=== PATIENT | male | born 1960 | race Caucasian/White ===

== ENCOUNTER 2018-12-28 18:22 | Inpatient (IN) | payer MEDICAID ==
[~2018-12-28] VITALS: Ht 175.3 cm; Wt 87.4 kg
[2018-12-28] MEDS ORDERED: ASPIRIN 81 MG TAB PO STA (20:37)
[2018-12-28] MEDS ORDERED: NITROGLYCERIN 2% 1 GM OINT PKT TD STA (20:37)
[2018-12-28] MEDS ORDERED: NITROGLYCERIN (SL) 0.4 MG TAB SL PRN ×2 (21:00→22:30)
[2018-12-28] MEDS ORDERED: BISACODYL (EC) 5 MG TAB PO PRN (22:30)
[2018-12-28] MEDS ORDERED: NACL 0.9% 3 ML SYG IV SCH (22:30)
[2018-12-28] MEDS ORDERED: ACETAMINOPHEN 325 MG TAB PO PRN ×2 (22:30)
[2018-12-28] MEDS ORDERED: DOCUSATE SODIUM 100 MG CAP PO PRN (22:30)
[2018-12-28] MEDS ORDERED: morphine 2 MG INJ IV PRN (22:30)
[2018-12-28] MEDS ORDERED: ONDANSETRON 4 MG INJ IV PRN ×2 (22:30)
--- NOTE | 2018-12-28 23:09 | ERD ---
ER Documentation Chief Complaint Chief Complaint CP RADIATING TO BACK X'S 3 DAYS HPI Patient is a 58-year-old male with no medical problems who presents with chest pain and shortness of breath. The patient has midsternal chest pain which started on Thursday. The patient is a 3 weeks of back pain and cough. The patient has had fevers off and on as well but says these are subjective fevers and has not taken temperature.. The patient goes to a local clinic. ROS All systems reviewed and are negative except as per history of present illness. Allergies Allergies: Coded Allergies: No Known Allergy (Unverified , 12/28/18) PMhx/Soc Medical and Surgical Hx: pt denies Medical Hx, pt denies Surgical Hx Hx Alcohol Use: No Hx Substance Use: No Hx Tobacco Use: No Smoking Status: Never smoker FmHx Family History: coronary disease Physical Exam Vitals Vital Signs Date Temp Pulse Resp B/P (MAP) Pulse Ox O2 O2 Flow FiO2 Time Delivery Rate 12/28/18 73 12 156/91 98 Room Air 22:52 (112) 12/28/18 98.6 92 18 194/109 96 18:54 (137) Physical Exam Const: No acute distress Head: Atraumatic Eyes: Normal Conjunctiva ENT: Normal External Ears, Nose and Mouth. Neck: Full range of motion. No meningismus. Resp: Clear to auscultation bilaterally Cardio: Regular rate and rhythm, no murmurs Abd: Soft, non tender, non distended. Normal bowel sounds Skin: No petechiae or rashes Back: No midline or flank tenderness Ext: No cyanosis, or edema Neur: Awake and alert Psych: Normal Mood and Affect Result Diagram: 12/28/18205412/28/182054 Results 24 hrs Laboratory Tests Test 12/28/18 20:55 White Blood Count 9.9 10^3/ul Red Blood Count 4.81 10^6/ul Hemoglobin 13.8 g/dl Hematocrit 41.9 % Mean Corpuscular Volume 87.1 fl Mean Corpuscular Hemoglobin 28.7 pg Mean Corpuscular Hemoglobin Concent 32.9 g/dl Red Cell Distribution Width 13.2 % Platelet Count 267 10^3/UL Mean Platelet Volume 10.8 fl Immature Granulocytes % 0.300 % Neutrophils % 62.4 % Lymphocytes % 23.5 % Monocytes % 12.2 % Eosinophils % 1.2 % Basophils % 0.4 % Nucleated Red Blood Cells % 0.0 /100WBC Immature Granulocytes # 0.030 10^3/ul Neutrophils # 6.2 10^3/ul Lymphocytes # 2.3 10^3/ul Monocytes # 1.2 10^3/ul Eosinophils # 0.1 10^3/ul Basophils # 0.0 10^3/ul Nucleated Red Blood Cells # 0.0 10^3/ul Sodium Level 143 mmol/L Potassium Level 4.1 mmol/L Chloride Level 106 mmol/L Carbon Dioxide Level 27 mmol/L Anion Gap 10 Blood Urea Nitrogen 18 mg/dl Creatinine 0.71 mg/dl Est Glomerular Filtrat Rate mL/min > 60 mL/min Glucose Level 111 mg/dl Calcium Level 9.8 mg/dl Troponin I < 0.012 ng/ml Current Medications Medications Dose Sig/Clement Start Time Status Last (Trade) Ordered Route PRN Stop Time Admin Dose Reason Admin Aspirin 162 mg ONCE STAT 12/28/18 DC 12/28/18 (Aspirin) PO 20:37 20:52 12/28/18 20:39 1 inch ONCE STAT 12/28/18 DC 12/28/18 Nitroglycerin TD 20:37 20:53 12/28/18 20:39 (Nitroglyceri n 2% Oint) 1 tab Q5M UP TO 3 12/28/18 Nitroglycerin DOSES PRN 21:00 SL .CHEST (Nitroglyceri PAIN n (Sl Tab) 0.4 Mg) Ondansetron 4 mg ER BRIDGE 12/28/18 HCl (Zofran PRN IV 22:30 12/29/18 Inj) NAUSEA/VOMITI 22:29 NG 650 mg ER BRIDGE 12/28/18 Acetaminophen PRN PO 22:30 12/29/18 (Tylenol .MILD PAIN 22:29 Tab) 1-3 OR TEMP IV Flush 3 ml PER 12/28/18 (NS 3 ml) PROTOCOL IV 22:30 Ondansetron 4 mg Q6H PRN 12/28/18 HCl (Zofran IV 22:30 Inj) NAUSEA/VOMITI NG Aspirin 81 mg DAILY PO 12/29/18 (Aspirin) 09:00 1 tab Q5M PRN 12/28/18 Nitroglycerin SL .CHEST 22:30 PAIN (Nitroglyceri n (Sl Tab) 0.4 Mg) 650 mg Q6H PRN 12/28/18 Acetaminophen PO .PAIN 1-3 22:30 (Tylenol OR TEMP Tab) Morphine 2 mg Q4H PRN 12/28/18 Sulfate IV .PAIN 22:30 (morphine) 7-10 Docusate 100 mg Q12H PRN 12/28/18 Sodium PO 22:30 (Colace) .CONSTIPATION Bisacodyl 5 mg DAILY PRN 12/28/18 (Dulcolax) PO 22:30 .CONSTIPATION Procedures/MDM EKG #1 read by me: Rate/Rhythm: Regular rate and rhythm at a normal rate Intervals: Normal Impression: No evidence of ischemia or arrhythmia EKG #2 read by me: Rate/Rhythm: Regular rate and rhythm at a normal rate Intervals: Normal Impression: No evidence of ischemia or arrhythmia Chest X-ray 1V Interpreted by me: Soft Tissue: No acute abnormalities Bones: No acute abnormalities Mediastinum/Cardiac Silhouette/Lungs: No acute abnormalities Patient is a 58-year-old male presents with chest pain shortness of breath. At this point I doubt pneumonia, pneumothorax, pulmonary embolism, or aortic dissection. I am concerned about possible acute coronary syndrome. The patient was given aspirin nitroglycerin empirically. He will be admitted to a telemetry observation bed to the care of Dr. Guerrero from the panel team. Departure Diagnosis: Primary Impression: Chest pain Chest pain type: unspecified Qualified Codes: R07.9 - Chest pain, unspecified Condition: KELSEY Mckeon MD Dec 28, 2018 23:09
[2018-12-28] MEDS ORDERED: [UNRECOGNIZED DRUG - CODE] PO (23:32)
[2018-12-28] MEDS ORDERED: HYDR12.53 PO (23:32)
[2018-12-29] VITALS (11 sets, daily range): BP systolic 120–148; BP diastolic 63–90; PULSE 66–94; RESP 18–20; Ht 175.3 cm; Wt 87.4 kg
[2018-12-29] MEDS ORDERED: hydrALAzine 20 MG INJ IV PRN (01:00)
--- NOTE | 2018-12-29 03:24 | HP ---
Date/Time of Note Date/Time of Note DATE: 12/29/18 TIME: 03:17 Assessment/Plan VTE Prophylaxis SCD applied (from Nsg): Yes Pharmacological prophylaxis: NA/contraindicated Pharm contraindication: low risk/ambulating Lines/Catheters IV Catheter Type (from Nrsg): Peripheral IV Assessment/Plan Hospital Course This is a 58-year male being admitted to the telemetry floor for observation for: #1 atypical chest pain: Patient presented with right-sided chest pain that occurs with cough, likely secondary to pneumonia.. Nonetheless we will trend cardiac enzymes x3. We will check an echocardiogram. #2 suspect community acquired pneumonia: Chest x-ray shows signs of possible pneumonia on the right side. Patient is afebrile and has a normal white blood cell count. However given his history of cough and fevers at home as well as him showing visible chills on examination I will treat him with ceftriaxone and azithromycin. We will get a procalcitonin level. #3 borderline obesity: We will check a hemoglobin A1c, lipid panel, TSH #4 hypertensive urgency: Patient did present to the emergency department with blood pressures in the 190s systolic. Patient apparently was also noted to have elevated blood pressures at the clinic when he was seen. Will initiate lisinopril at the current time. Continue to monitor #5 DVT GI prophylaxis: SCDs, no GI prophylaxis indicated Further treatment strategy will be implemented as per clinical course Result Diagram: 12/28/18205412/28/182054 Results 24hrs Laboratory Tests Test 12/28/18 20:55 White Blood Count 9.9 Red Blood Count 4.81 Hemoglobin 13.8 L Hematocrit 41.9 L Mean Corpuscular Volume 87.1 Mean Corpuscular Hemoglobin 28.7 L Mean Corpuscular Hemoglobin Concent 32.9 Red Cell Distribution Width 13.2 Platelet Count 267 Mean Platelet Volume 10.8 H Immature Granulocytes % 0.300 Neutrophils % 62.4 Lymphocytes % 23.5 Monocytes % 12.2 H Eosinophils % 1.2 Basophils % 0.4 Nucleated Red Blood Cells % 0.0 Immature Granulocytes # 0.030 Neutrophils # 6.2 Lymphocytes # 2.3 Monocytes # 1.2 H Eosinophils # 0.1 Basophils # 0.0 Nucleated Red Blood Cells # 0.0 Sodium Level 143 Potassium Level 4.1 Chloride Level 106 Carbon Dioxide Level 27 Anion Gap 10 Blood Urea Nitrogen 18 Creatinine 0.71 Est Glomerular Filtrat Rate mL/min > 60 Glucose Level 111 Calcium Level 9.8 Troponin I < 0.012 HPI/ROS Admit Date/Time Admit Date/Time Dec 28, 2018 at 22:27 Hx of Present Illness Chief complaint: Shortness of breath, cough chest pain since Thursday This is a patient is a 58-year-old male with no medical problems who presents with chest pain and shortness of breath. The patient has midsternal chest pain which started on Thursday. The patient is a 3 weeks of back pain and cough. The patient has had fevers off and on as well but says these are subjective fevers and has not taken temperature.. He reported that he went to a clinic yesterday and was told he had pneumonia. His brought him to the ER as she noticed that he just did not look right. He does report some phlegm with some specks of blood but denies any cj blood. Denies any recent weight loss or recent travel, denies any night sweats.. He reports that his chest pain is mostly when he coughs and is on the right side. He does work in a factory/warehouse around chemicals. Allergies: NKDA Medications: None ROS Const: As per HPI Eyes : No pain discharge or redness or change in visual acuity ENT: No pain, sore throat, congestion, congestion, dysphagia or discharge Respiratory: As per HPI Cardiovascular: As per HPI GI : no change in appetite, abdominal pain, nausea, vomiting, diarrhea, constipation, or change in the color his stool Genitourinary: No dysuria, hematuria, flank pain , discharge or CVA tenderness Musculoskeletal: No joint pain, back pain, neck pain, restricted range of motion in neck or joints Skin: No rash, bruising or hives Neuro: No headache, dizziness, syncope, seizure, focal weakness Endocrine: No polyuria, polydipsia, temperature intolerance Psych: No hallucination, depression, anxiety or suicidal ideation PMH/Family/Social Past Medical History Anxiety Medications Current Medications Nitroglycerin (Nitroglycerin (Sl Tab) 0.4 Mg) 1 tab Q5M UP TO 3 DOSES PRN SL .CHEST PAIN; Start 12/28/18 at 21:00 Ondansetron HCl (Zofran Inj) 4 mg ER BRIDGE PRN IV NAUSEA/VOMITING; Start 12/28/18 at 22:30; Stop 12/29/18 at 22:29 Acetaminophen (Tylenol Tab) 650 mg ER BRIDGE PRN PO .MILD PAIN 1-3 OR TEMP; Start 12/28/18 at 22:30; Stop 12/29/18 at 22:29 IV Flush (NS 3 ml) 3 ml PER PROTOCOL IV ; Start 12/28/18 at 22:30 Ondansetron HCl (Zofran Inj) 4 mg Q6H PRN IV NAUSEA/VOMITING; Start 12/28/18 at 22:30 Aspirin (Aspirin) 81 mg DAILY PO ; Start 12/29/18 at 09:00 Nitroglycerin (Nitroglycerin (Sl Tab) 0.4 Mg) 1 tab Q5M PRN SL .CHEST PAIN; Start 12/28/18 at 22:30 Acetaminophen (Tylenol Tab) 650 mg Q6H PRN PO .PAIN 1-3 OR TEMP; Start 12/28/18 at 22:30 Morphine Sulfate (morphine) 2 mg Q4H PRN IV .PAIN 7-10; Start 12/28/18 at 22:30 Docusate Sodium (Colace) 100 mg Q12H PRN PO .CONSTIPATION; Start 12/28/18 at 22:30 Bisacodyl (Dulcolax) 5 mg DAILY PRN PO .CONSTIPATION; Start 12/28/18 at 22:30 Hydralazine HCl (Apresoline) 10 mg Q4H PRN IV ELEVATED BLOOD PRESSURE; Start 12/29/18 at 01:00 Coded Allergies: No Known Allergy (Unverified , 12/28/18) Past Surgical History Past Surgical Hx: no surgical history Family History Significant Family History: no pertinent family hx Social History Smoking Status: Never smoker Drug Use: none Exam/Review of Systems Vital Signs Vitals Vital Signs Date Temp Pulse Resp B/P (MAP) Pulse Ox O2 O2 Flow FiO2 Time Delivery Rate 12/29/18 66 15 158/92 99 Room Air 02:46 (114) 12/28/18 98.6 18:54 Exam Exam General: Patient is a pleasant male currently lying in bed he does appear to be having the chills HEENT: Atraumatic, normocephalic. The pupils are equal, round and reactive. Extraocular motor are intact Neck: Supple with full range of motion. No rigidity or meningismus Chest: Nontender Lungs: Coarse breath sounds at the right lung base, no wheezing Heart: Normal S1-S2, Regular rhythm and rate. No murmur, S3, or S4 Abdomen: Soft , nontender, nondistended , bowel sounds are present. No guarding no rebound tenderness , No masses or organomegaly. No costovertebral temporal angle mass Extremities: Normal to inspection, no edema no cyanosis Neurologic: Normal mental status, speech normal, cranial nerves II through XII are intact, motor and sensory are intact, no focal weakness Additional Comments EKG Rate/Rhythm: Regular rate and rhythm at a normal rate Intervals: Normal Impression: No evidence of ischemia or arrhythmia PROCEDURE: XR Chest. CLINICAL INDICATION: Chest pain TECHNIQUE: Single portable view of the chest was obtained. COMPARISON: None. FINDINGS: Cardiac/vascular structures: Normal cardiomediastinal silhouette. Pulmonary: Right mid lung air space opacity.. No pleural effusion. No evidence of pneumothorax. Osseous structures: Normal Soft tissues: Normal IMPRESSION: Right mid lung air space opacity representing atelectasis or pneumonia. RPTAT:AAJJ Physician Sven Date Time Electronically viewed and signed by Physician Sven on 12/28/2018 23:18 MH/ CC: KELSEY IBARRA MD [id number] REGGIE BLOCK December 29, 2018 03:24
[2018-12-29] MEDS: CEFTRIAXONE 1 GM/50 ML (PMX) 50 ML IVPB SCH (04:51)
[2018-12-29] MEDS: AZITHROMYCIN 500MG/NS (PMX) 250 ML IVPB SCH (06:22)
[2018-12-29] MEDS: LISINOPRIL 10 MG TAB PO SCH (08:22)
[2018-12-29] MEDS: ASPIRIN 81 MG TAB PO SCH (08:22)
--- NOTE | 2018-12-29 11:22 | PN ---
Date/Time of Note Date/Time of Note DATE: 12/29/18 TIME: 11:21 Assessment/Plan VTE Prophylaxis Risk score (from Nsg)>0 risk: 2 SCD applied (from Nsg): Yes Pharmacological prophylaxis: LMWH Lines/Catheters IV [facility]from [facility] Saline Lock Assessment/Plan Hospital Course SUBJECTIVE: Denies any chest pain. Complains of cough. OBJECTIVE: Physical Exam General: Adequately build 58 year-old male lying in bed in no apparent distress. HEENT: Normocephalic, atraumatic. Eyes: Anicteric sclerae, conjunctivae clear. ENT: Nasal septum midline, oral mucosa moist. Neck supple, no JVD noticed. Respiratory: Bilaterally diminished breath sounds. No use of accessory muscles of respiration. No adventitious breath sounds. Cardiovascular: S1, S2 heard. Regular rate and rhythm. Abdomen: Soft, nontender, and nondistended. Bowel sounds positive in all 4 quadrants. Genitourinary: Deferred. Extremities: No cyanosis, no clubbing, no edema. Peripheral pulses palpable. Neurologic: Cranial nerves II through XII grossly intact. The patient is awake, alert, and oriented. Skin: Normal skin turgor. No skin rashes. Labs & Vitals per chart ASSESSMENT & PLAN 58-year-old male with a past medical history of hypertension who came to the emergency room with multiple complaints including right-sided chest pain as well as cough with sputum production along with dyspnea that has been going on for the past few days. The patient's chest x-ray that was done in the emergency room showed right midlung airspace opacity representing atelectasis or pneumonia. The patient was admitted to inpatient setting for further treatment and evaluation. 1. Suspect community-acquired pneumonia. -Continue Zithromax plus ceftriaxone. - Repeat chest x-ray. 2. Hypertension. -Continue antihypertensives. 3. Atypical chest pain. -Serial troponins negative. 4. Prediabetes. -Hemoglobin A1c of 5.9. -Monitor glycemic trends. 5. Fluids, electrolytes, and nutrition. -Low-cholesterol diet. 6. DVT prophylaxis. -Subcutaneous Lovenox. 7. Plan. -Continue antimicrobials. -Await clinical improvement. The patient was seen in collaboration with Dr. Duncan. Result Diagram: 12/29/18 0351 12/29/18 0351 Results 24hrs Laboratory Tests Test 12/28/18 20:55 12/29/18 03:01 12/29/18 03:47 12/29/18 03:51 White Blood Count 9.9 8.9 Red Blood Count 4.81 4.56 L Hemoglobin 13.8 L 13.2 L Hematocrit 41.9 L 40.0 L Mean Corpuscular Volume 87.1 87.7 Mean Corpuscular 28.7 L 28.9 L Hemoglobin Mean Corpuscular 32.9 33.0 Hemoglobin Concent Red Cell Distribution 13.2 13.2 Width Platelet Count 267 256 Mean Platelet Volume 10.8 H 11.1 H Immature Granulocytes % 0.300 0.300 Neutrophils % 62.4 66.0 Lymphocytes % 23.5 20.6 Monocytes % 12.2 H 10.7 Eosinophils % 1.2 2.1 Basophils % 0.4 0.3 Nucleated Red Blood 0.0 0.0 Cells % Immature Granulocytes # 0.030 0.030 Neutrophils # 6.2 5.8 Lymphocytes # 2.3 1.8 Monocytes # 1.2 H 1.0 H Eosinophils # 0.1 0.2 Basophils # 0.0 0.0 Nucleated Red Blood 0.0 0.0 Cells # Sodium Level 143 144 Potassium Level 4.1 4.3 Chloride Level 106 108 Carbon Dioxide Level 27 28 Anion Gap 10 8 Blood Urea Nitrogen 18 16 Creatinine 0.71 0.68 Est Glomerular Filtrat > 60 > 60 Rate mL/min Glucose Level 111 115 Calcium Level 9.8 9.5 Troponin I < 0.012 < 0.012 Creatine Kinase 149 Creatine Kinase Index 0.9 Creatinine Kinase MB 1.27 (Mass) D-Dimer 281.24 D-Dimer Comment Hemoglobin A1c 5.9 Magnesium Level 2.1 Total Bilirubin 0.4 Direct Bilirubin 0.00 Indirect Bilirubin 0.4 Aspartate Amino 24 Transf (AST/SGOT) Alanine 20 Aminotransferase (ALT/S GPT) Alkaline Phosphatase 81 Total Protein 7.7 Albumin 4.0 Globulin 3.70 H Albumin/Globulin Ratio 1.08 Triglycerides Level 86 Cholesterol Level 176 LDL Cholesterol, 125 Calculated HDL Cholesterol 34 Cholesterol/HDL Ratio 5.1 Procalcitonin < 0.02 Thyroid Stimulating 7.410 H Hormone (TSH) Test 12/29/18 07:49 Creatine Kinase 152 Creatine Kinase Index 0.8 Creatinine Kinase MB 1.22 (Mass) Troponin I < 0.012 Exam/Review of Systems Exam Vitals Vital Signs Date Temp Pulse Resp B/P (MAP) Pulse Ox O2 O2 Flow FiO2 Time Delivery Rate 12/29/18 78 08:15 12/29/18 98.7 20 130/78 96 Room Air 07:22 (95) Intake and Output 12/28/18 12/28/18 12/29/18 1414:59 22:59 06:59 IntakeIntake Total 170 ml OutputOutput Total 400 ml BalanceBalance -230 ml Results Results 24hrs Laboratory Tests Test 12/28/18 20:55 12/29/18 03:01 12/29/18 03:47 12/29/18 03:51 White Blood Count 9.9 8.9 Red Blood Count 4.81 4.56 L Hemoglobin 13.8 L 13.2 L Hematocrit 41.9 L 40.0 L Mean Corpuscular Volume 87.1 87.7 Mean Corpuscular 28.7 L 28.9 L Hemoglobin Mean Corpuscular 32.9 33.0 Hemoglobin Concent Red Cell Distribution 13.2 13.2 Width Platelet Count 267 256 Mean Platelet Volume 10.8 H 11.1 H Immature Granulocytes % 0.300 0.300 Neutrophils % 62.4 66.0 Lymphocytes % 23.5 20.6 Monocytes % 12.2 H 10.7 Eosinophils % 1.2 2.1 Basophils % 0.4 0.3 Nucleated Red Blood 0.0 0.0 Cells % Immature Granulocytes # 0.030 0.030 Neutrophils # 6.2 5.8 Lymphocytes # 2.3 1.8 Monocytes # 1.2 H 1.0 H Eosinophils # 0.1 0.2 Basophils # 0.0 0.0 Nucleated Red Blood 0.0 0.0 Cells # Sodium Level 143 144 Potassium Level 4.1 4.3 Chloride Level 106 108 Carbon Dioxide Level 27 28 Anion Gap 10 8 Blood Urea Nitrogen 18 16 Creatinine 0.71 0.68 Est Glomerular Filtrat > 60 > 60 Rate mL/min Glucose Level 111 115 Calcium Level 9.8 9.5 Troponin I < 0.012 < 0.012 Creatine Kinase 149 Creatine Kinase Index 0.9 Creatinine Kinase MB 1.27 (Mass) D-Dimer 281.24 D-Dimer Comment Hemoglobin A1c 5.9 Magnesium Level 2.1 Total Bilirubin 0.4 Direct Bilirubin 0.00 Indirect Bilirubin 0.4 Aspartate Amino 24 Transf (AST/SGOT) Alanine 20 Aminotransferase (ALT/S GPT) Alkaline Phosphatase 81 Total Protein 7.7 Albumin 4.0 Globulin 3.70 H Albumin/Globulin Ratio 1.08 Triglycerides Level 86 Cholesterol Level 176 LDL Cholesterol, 125 Calculated HDL Cholesterol 34 Cholesterol/HDL Ratio 5.1 Procalcitonin < 0.02 Thyroid Stimulating 7.410 H Hormone (TSH) Test 12/29/18 07:49 Creatine Kinase 152 Creatine Kinase Index 0.8 Creatinine Kinase MB 1.22 (Mass) Troponin I < 0.012 Medications Medication Current Medications Nitroglycerin (Nitroglycerin (Sl Tab) 0.4 Mg) 1 tab Q5M UP TO 3 DOSES PRN SL .CHEST PAIN; Start 12/28/18 at 21:00 Ondansetron HCl (Zofran Inj) 4 mg ER BRIDGE PRN IV NAUSEA/VOMITING; Start 12/28/18 at 22:30; Stop 12/29/18 at 22:29 Acetaminophen (Tylenol Tab) 650 mg ER BRIDGE PRN PO .MILD PAIN 1-3 OR TEMP; Start 12/28/18 at 22:30; Stop 12/29/18 at 22:29 IV Flush (NS 3 ml) 3 ml PER PROTOCOL IV ; Start 12/28/18 at 22:30 Ondansetron HCl (Zofran Inj) 4 mg Q6H PRN IV NAUSEA/VOMITING; Start 12/28/18 at 22:30 Aspirin (Aspirin) 81 mg DAILY PO Last administered on 12/29/18at 08:22; Admin Dose 81 MG; Start 12/29/18 at 09:00 Nitroglycerin (Nitroglycerin (Sl Tab) 0.4 Mg) 1 tab Q5M PRN SL .CHEST PAIN; Start 12/28/18 at 22:30 Acetaminophen (Tylenol Tab) 650 mg Q6H PRN PO .PAIN 1-3 OR TEMP; Start 12/28/18 at 22:30 Morphine Sulfate (morphine) 2 mg Q4H PRN IV .PAIN 7-10; Start 12/28/18 at 22:30 Docusate Sodium (Colace) 100 mg Q12H PRN PO .CONSTIPATION; Start 12/28/18 at 22:30 Bisacodyl (Dulcolax) 5 mg DAILY PRN PO .CONSTIPATION; Start 12/28/18 at 22:30 Hydralazine HCl (Apresoline) 10 mg Q4H PRN IV ELEVATED BLOOD PRESSURE; Start 12/29/18 at 01:00 Ceftriaxone Sodium 50 ml @ 100 mls/hr Q24H IVPB Last administered on 12/29/18at 04:51; Admin Dose 100 MLS/HR; Start 12/29/18 at 03:30 Azithromycin 250 ml @ 250 mls/hr Q24H IVPB Last administered on 12/29/18at 06:22; Admin Dose 250 MLS/HR; Start 12/29/18 at 05:00 Lisinopril (Zestril) 10 mg DAILY PO Last administered on 12/29/18at 08:22; Admin Dose 10 MG; Start 12/29/18 at 09:00 TATIANA HENDRICKSON NP December 29, 2018 11:22
--- NOTE | 2018-12-29 18:58 | RADRPT ---
Echocardiogram Report Patient Name: RICH LOPEZPatient ID: [id number] : 1960 (58y 10m)Study Date: 12/29/2018 8:16:46 AM Gender: Varuncession #: [id number] Tech: AL Location: Ref.Physician: REGGIE BLOCK Height(Cm): BSA: Weight(Kg): Quality: AdequateAccount #: Procedures: Echocardiographic Report: Transthoracic echocardiogram with complete 2D, M-Mode, and doppler examination. Indications: Chest Pain. Measurements: 2D/M Mode Doppler Measurement Value Normal Range Measurement Value Normal Range LVIDd 2D 4.1 [ 4.2 - 5.8 ] cm AV Peak Wilbur 1.2 [ 100.0 - 170.0 ] cm/sec LVIDs 2D 2.4 [ 2.5 - 4.0 ] cm AV Peak PG 6.0 [ 2.0 - 9.0 ] mmHg LVPWd 2D 1.0 [ 0.6 - 1.0 ] cm LVOT Peak Wilbur 1.1 [ 70.0 - 110.0 ] cm/sec IVSd 2D 1.0 [ 0.6 - 1.0 ] cm LVOT Peak PG 5.0 [ 2.0 - 6.0 ] mmHg AoR Diam 2D 3.2 [ 2.6 - 3.4 ] cm MV E Peak Wilbur 0.9 [ 60.0 - 130.0 ] cm/sec EDV 2D 72.9 [ 62.0 - 150.0 ] ml MV A Peak Wilbur 0.7 [ 100.0 - 120.0 ] cm/sec ESV 2D 20.0 [ 21.0 - 61.0 ] ml MV E/A 1.2 [ 0.8 - 1.5 ] ratio EF 2D 72.6 [ 52.0 - 72.0 ] percent MV Decel Time 162 [ 104 - 258 ] msec LA Dimen 2D 3.0 [ 3.0 - 4.0 ] cm Lat E` Wilbur 0.1 [ 10.0 - 15.0 ] cm/sec Lateral E/E` 6.5 [ 1.0 - 2.0 ] ratio MV E/A 1.2 [ 0.8 - 1.5 ] ratio TR Peak Wilbur 1.8 [ 100.0 - 280.0 ] cm/sec TR Peak PG 13.0 mmHg RVSP 16.0 [ 10.0 - 36.0 ] mmHg RA Pressure 3.0 mmHg Findings: Left Ventricle: Normal left ventricular systolic function. Normal left ventricular cavity size. Mild concentric left ventricular hypertrophy. Ejection fraction is visually estimated at 55-60 %. Tissue Doppler/Mitral Doppler indices are consistent with impaired relaxation (Stage I diastolic dysfunction). Right Ventricle: Normal right ventricular size. Normal right ventricular systolic function. Left Atrium: The left atrium is normal in size. Right Atrium: The right atrium is normal in size. Mitral Valve: Normal appearance and function of the mitral valve with trace physiologic regurgitation. Aortic Valve: Normal appearance of the aortic valve. No significant aortic stenosis or insufficiency. Tricuspid Valve: Normal appearance of the tricuspid valve. Estimated peak PA systolic pressure 16 mmHg. There is trace tricuspid regurgitation. Pulmonic Valve: Pulmonic valve not well visualized. Pericardium: Normal pericardium with no significant pericardial effusion. Aorta: Normal aortic root. IVC: Normal size and normal respiratory collapse consistent with normal right atrial pressure. Conclusions: Normal left ventricular systolic function. Normal left ventricular cavity size. Mild concentric left ventricular hypertrophy. Ejection fraction is visually estimated at 55-60 %. Tissue Doppler/Mitral Doppler indices are consistent with impaired relaxation (Stage I diastolic dysfunction). Normal appearance and function of the mitral valve with trace physiologic regurgitation. Normal appearance of the tricuspid valve. Estimated peak PA systolic pressure 16 mmHg. There is trace tricuspid regurgitation. Electronically Signed By: Pal Liu 2018-12-29 18:57:58 PDT
[2018-12-30] VITALS (8 sets, daily range): BP systolic 123–137; BP diastolic 51–86; PULSE 65–96; RESP 18–22
[2018-12-30] MEDS: CEFTRIAXONE 1 GM/50 ML (PMX) 50 ML IVPB SCH (03:16)
[2018-12-30] MEDS: AZITHROMYCIN 500MG/NS (PMX) 250 ML IVPB SCH (04:07)
[2018-12-30] MEDS: ASPIRIN 81 MG TAB PO SCH (08:51)
[2018-12-30] MEDS: LISINOPRIL 10 MG TAB PO SCH (08:51)
--- NOTE | 2018-12-30 10:33 | PN ---
Date/Time of Note Date/Time of Note DATE: 12/30/18 TIME: 10:33 Assessment/Plan VTE Prophylaxis Risk score (from Nsg)>0 risk: 3 SCD applied (from Nsg): Yes Pharmacological prophylaxis: LMWH Lines/Catheters IV Catheter Type (from Nrsg): Saline Lock Urinary Cath still in place: No Assessment/Plan Hospital Course SUBJECTIVE: Denies any chest pain. Complains of cough. OBJECTIVE: Physical Exam General: Adequately build 58 year-old male lying in bed in no apparent distress. HEENT: Normocephalic, atraumatic. Eyes: Anicteric sclerae, conjunctivae clear. ENT: Nasal septum midline, oral mucosa moist. Neck supple, no JVD noticed. Respiratory: Bilaterally diminished breath sounds. No use of accessory muscles of respiration. No adventitious breath sounds. Cardiovascular: S1, S2 heard. Regular rate and rhythm. Abdomen: Soft, nontender, and nondistended. Bowel sounds positive in all 4 quadrants. Genitourinary: Deferred. Extremities: No cyanosis, no clubbing, no edema. Peripheral pulses palpable. Neurologic: Cranial nerves II through XII grossly intact. The patient is awake, alert, and oriented. Skin: Normal skin turgor. No skin rashes. Labs & Vitals per chart ASSESSMENT & PLAN 58-year-old male with a past medical history of hypertension who came to the emergency room with multiple complaints including right-sided chest pain as well as cough with sputum production along with dyspnea that has been going on for the past few days. The patient's chest x-ray that was done in the emergency room showed right midlung airspace opacity representing atelectasis or pneumonia. The patient was admitted to inpatient setting for further treatment and evaluation. 1. Suspect community-acquired pneumonia. -CT scan showed an indeterminate irregular lobulated 3.2 cm pulmonary mass spanning the right upper and middle lobes -Discontinue Zithromax plus ceftriaxone. -Obtain tissue diagnosis. -Obtain pulmonology consult. 2. Hypertension. -Continue antihypertensives. 3. Atypical chest pain. -Serial troponins negative. 4. Prediabetes. -Hemoglobin A1c of 5.9. -Monitor glycemic trends. 5. Fluids, electrolytes, and nutrition. -Low-cholesterol diet. 6. DVT prophylaxis. -Subcutaneous Lovenox. 7. Plan. -Discontinue antimicrobials. -CT-guided needle biopsy of the lung lesion has been ordered. -Obtain pulmonology consult. -Since serology including coccidioidomycosis. -Transfer to medical surgical floor. The plan of care was explained to the patient and his family with the help of a school boat driver. All questions answered. The patient was seen in collaboration with Dr. Duncan. Result Diagram: 12/30/1825 12/30/18 0625 Results 24hrs Laboratory Tests Test 12/30/18 06:25 White Blood Count 11.4 #H Red Blood Count 4.74 Hemoglobin 13.7 L Hematocrit 41.1 L Mean Corpuscular Volume 86.7 Mean Corpuscular Hemoglobin 28.9 L Mean Corpuscular Hemoglobin Concent 33.3 Red Cell Distribution Width 13.3 Platelet Count 256 Mean Platelet Volume 11.0 H Immature Granulocytes % 0.300 Neutrophils % 71.9 Lymphocytes % 15.9 Monocytes % 9.5 Eosinophils % 2.1 Basophils % 0.3 Nucleated Red Blood Cells % 0.0 Immature Granulocytes # 0.030 Neutrophils # 8.2 H Lymphocytes # 1.8 Monocytes # 1.1 H Eosinophils # 0.2 Basophils # 0.0 Nucleated Red Blood Cells # 0.0 Sodium Level 142 Potassium Level 4.4 Chloride Level 108 Carbon Dioxide Level 27 Anion Gap 7 Blood Urea Nitrogen 17 Creatinine 0.62 Est Glomerular Filtrat Rate mL/min > 60 Glucose Level 100 Calcium Level 9.6 Phosphorus Level 3.8 Magnesium Level 2.0 Triglycerides Level 114 Cholesterol Level 169 LDL Cholesterol, Calculated 117 HDL Cholesterol 29 L Cholesterol/HDL Ratio 5.8 Exam/Review of Systems Exam Vitals Vital Signs Date Temp Pulse Resp B/P (MAP) Pulse Ox O2 O2 Flow FiO2 Time Delivery Rate 12/30/18 77 08:00 12/30/18 95 Room Air 07:52 12/30/18 98.1 20 123/68 07:16 (86) Intake and Output 12/29/18 12/29/18 12/30/18 1515:00 23:00 07:00 IntakeIntake Total 800 ml 300 ml BalanceBalance 800 ml 300 ml Results Results 24hrs Laboratory Tests Test 12/30/18 06:25 White Blood Count 11.4 #H Red Blood Count 4.74 Hemoglobin 13.7 L Hematocrit 41.1 L Mean Corpuscular Volume 86.7 Mean Corpuscular Hemoglobin 28.9 L Mean Corpuscular Hemoglobin Concent 33.3 Red Cell Distribution Width 13.3 Platelet Count 256 Mean Platelet Volume 11.0 H Immature Granulocytes % 0.300 Neutrophils % 71.9 Lymphocytes % 15.9 Monocytes % 9.5 Eosinophils % 2.1 Basophils % 0.3 Nucleated Red Blood Cells % 0.0 Immature Granulocytes # 0.030 Neutrophils # 8.2 H Lymphocytes # 1.8 Monocytes # 1.1 H Eosinophils # 0.2 Basophils # 0.0 Nucleated Red Blood Cells # 0.0 Sodium Level 142 Potassium Level 4.4 Chloride Level 108 Carbon Dioxide Level 27 Anion Gap 7 Blood Urea Nitrogen 17 Creatinine 0.62 Est Glomerular Filtrat Rate mL/min > 60 Glucose Level 100 Calcium Level 9.6 Phosphorus Level 3.8 Magnesium Level 2.0 Triglycerides Level 114 Cholesterol Level 169 LDL Cholesterol, Calculated 117 HDL Cholesterol 29 L Cholesterol/HDL Ratio 5.8 Medications Medication Current Medications Nitroglycerin (Nitroglycerin (Sl Tab) 0.4 Mg) 1 tab Q5M UP TO 3 DOSES PRN SL .CHEST PAIN; Start 12/28/18 at 21:00 IV Flush (NS 3 ml) 3 ml PER PROTOCOL IV ; Start 12/28/18 at 22:30 Ondansetron HCl (Zofran Inj) 4 mg Q6H PRN IV NAUSEA/VOMITING; Start 12/28/18 at 22:30 Aspirin (Aspirin) 81 mg DAILY PO Last administered on 12/30/18at 08:51; Admin Dose 81 MG; Start 12/29/18 at 09:00 Nitroglycerin (Nitroglycerin (Sl Tab) 0.4 Mg) 1 tab Q5M PRN SL .CHEST PAIN; Start 12/28/18 at 22:30 Acetaminophen (Tylenol Tab) 650 mg Q6H PRN PO .PAIN 1-3 OR TEMP; Start 12/28/18 at 22:30 Morphine Sulfate (morphine) 2 mg Q4H PRN IV .PAIN 7-10; Start 12/28/18 at 22:30 Docusate Sodium (Colace) 100 mg Q12H PRN PO .CONSTIPATION; Start 12/28/18 at 22:30 Bisacodyl (Dulcolax) 5 mg DAILY PRN PO .CONSTIPATION; Start 12/28/18 at 22:30 Hydralazine HCl (Apresoline) 10 mg Q4H PRN IV ELEVATED BLOOD PRESSURE; Start 12/29/18 at 01:00 Ceftriaxone Sodium 50 ml @ 100 mls/hr Q24H IVPB Last administered on 12/30/18at 03:16; Admin Dose 100 MLS/HR; Start 12/29/18 at 03:30 Azithromycin 250 ml @ 250 mls/hr Q24H IVPB Last administered on 12/30/18at 04:07; Admin Dose 250 MLS/HR; Start 12/29/18 at 05:00 Lisinopril (Zestril) 10 mg DAILY PO Last administered on 12/30/18at 08:51; Admin Dose 10 MG; Start 12/29/18 at 09:00 TATIANA HENDRICKSON NP December 30, 2018 10:33
--- NOTE | 2018-12-30 13:12 | CONS ---
Assessment/Plan Assessment/Plan Assessment/Plan (Daily) CT chest was reviewed which is showing a right middle lobe lung mass. Assessment and recommendations; 1. Patient admitted with vague right-sided chest pain with a lung mass discovered on CT imaging of the chest. Findings are suspicious for malignant process. 2. Stable hypertension. Continue current supportive care. Agree with CT-guided biopsy. Consultation Date/Type/Reason Admit Date/Time Dec 28, 2018 at 22:27 Date of Consultation: December 30, 2018 Type of Consult Pulmonary Pulmonary consult requested for evaluation of lung mass. Patient is a pleasant 58-year-old male who came into the hospital with a few days history of right-sided chest pain with coughing. Patient denies any shortness of breath, hemoptysis, complains of scant sputum production. Denies any wheezing. Past medical history; 1. History of hypertension. medications; reviewed. Allergies; none. Social history; scant history of smoking 30 years ago. Family history; noncontributory. Occupational history; patient has miscellaneous occupations. Review of systems; denies any headache, seizures, sore throat, wheezing, complains of cough with production of scant yellow to beige-colored sputum. Denies any hemoptysis. Denies any wheezing. Denies any abdominal pain, nausea vomiting. Any melena or hematochezia. Any edema. Any skin changes or any arthritis symptoms. Denies any urinary symptoms. General exam; middle-aged male, awake alert, currently in no distress. Date/Time of Note DATE: 12/30/18 TIME: 13:09 Past Medical History Home Meds Reported Medications Hydrochlorothiazide (Hydrochlorothiazide) 12.5 Mg Capsule, 12.5 MG PO DAILY for 60 Days, #60 take 1 tablet by mouth once daily 12/28/18 Cetirizine Hcl (Allergy Relief) 10 Mg Tablet, 10 MG PO DAILY for 30 Days, #30 take 1 TABLET by mouth once daily 12/28/18 Medications Current Medications Nitroglycerin (Nitroglycerin (Sl Tab) 0.4 Mg) 1 tab Q5M UP TO 3 DOSES PRN SL .CHEST PAIN; Start 12/28/18 at 21:00 IV Flush (NS 3 ml) 3 ml PER PROTOCOL IV ; Start 12/28/18 at 22:30 Ondansetron HCl (Zofran Inj) 4 mg Q6H PRN IV NAUSEA/VOMITING; Start 12/28/18 at 22:30 Aspirin (Aspirin) 81 mg DAILY PO Last administered on 12/30/18at 08:51; Admin Dose 81 MG; Start 12/29/18 at 09:00 Nitroglycerin (Nitroglycerin (Sl Tab) 0.4 Mg) 1 tab Q5M PRN SL .CHEST PAIN; Start 12/28/18 at 22:30 Acetaminophen (Tylenol Tab) 650 mg Q6H PRN PO .PAIN 1-3 OR TEMP; Start 12/28/18 at 22:30 Morphine Sulfate (morphine) 2 mg Q4H PRN IV .PAIN 7-10; Start 12/28/18 at 22:30 Docusate Sodium (Colace) 100 mg Q12H PRN PO .CONSTIPATION; Start 12/28/18 at 22:30 Bisacodyl (Dulcolax) 5 mg DAILY PRN PO .CONSTIPATION; Start 12/28/18 at 22:30 Hydralazine HCl (Apresoline) 10 mg Q4H PRN IV ELEVATED BLOOD PRESSURE; Start 12/29/18 at 01:00 Lisinopril (Zestril) 10 mg DAILY PO Last administered on 12/30/18at 08:51; Admin Dose 10 MG; Start 12/29/18 at 09:00 Allergies: Coded Allergies: No Known Allergy (Unverified , 12/28/18) Past Surgical History Past Surgical Hx: no surgical history Social History Smoking Status: Never smoker Drug Use: none Exam/Review of Systems Exam Vitals Vital Signs Date Temp Pulse Resp B/P (MAP) Pulse Ox O2 O2 Flow FiO2 Time Delivery Rate 12/30/18 77 08:00 12/30/18 95 Room Air 07:52 12/30/18 98.1 20 123/68 07:16 (86) Intake and Output 12/29/18 12/29/18 12/30/18 1515:00 23:00 07:00 IntakeIntake Total 800 ml 300 ml BalanceBalance 800 ml 300 ml Exam H ENT exam; supple neck, no JVD. No lymphadenopathy. Midline trachea. No thyromegaly. Patient has good dentition. No neck masses. Chest exam; diminished but clear breath sounds. S1-S2 audible, no murmurs. Regular rhythm. Abdomen exam; soft, nontender. No organomegaly. Bowel sounds audible. Extremity exam; no peripheral edema clubbing. TRY ON BASTER exam; no focal deficit. Results Result Diagram: 12/30/18 0625 12/30/18 0625 Results 24hrs Laboratory Tests Test 12/30/18 06:25 12/30/18 09:44 12/30/18 10:21 White Blood Count 11.4 #H Red Blood Count 4.74 Hemoglobin 13.7 L Hematocrit 41.1 L Mean Corpuscular Volume 86.7 Mean Corpuscular Hemoglobin 28.9 L Mean Corpuscular Hemoglobin Concent 33.3 Red Cell Distribution Width 13.3 Platelet Count 256 Mean Platelet Volume 11.0 H Immature Granulocytes % 0.300 Neutrophils % 71.9 Lymphocytes % 15.9 Monocytes % 9.5 Eosinophils % 2.1 Basophils % 0.3 Nucleated Red Blood Cells % 0.0 Immature Granulocytes # 0.030 Neutrophils # 8.2 H Lymphocytes # 1.8 Monocytes # 1.1 H Eosinophils # 0.2 Basophils # 0.0 Nucleated Red Blood Cells # 0.0 Sodium Level 142 Potassium Level 4.4 Chloride Level 108 Carbon Dioxide Level 27 Anion Gap 7 Blood Urea Nitrogen 17 Creatinine 0.62 Est Glomerular Filtrat Rate mL/min > 60 Glucose Level 100 Calcium Level 9.6 Phosphorus Level 3.8 Magnesium Level 2.0 Triglycerides Level 114 Cholesterol Level 169 LDL Cholesterol, Calculated 117 HDL Cholesterol 29 L Cholesterol/HDL Ratio 5.8 HIV (1&2) Antibody NEGATIVE Prothrombin Time 13.2 Prothrombin Time Ratio 1.0 INR International Normalized Ratio 0.99 Medications Medication Current Medications Nitroglycerin (Nitroglycerin (Sl Tab) 0.4 Mg) 1 tab Q5M UP TO 3 DOSES PRN SL .CHEST PAIN; Start 12/28/18 at 21:00 IV Flush (NS 3 ml) 3 ml PER PROTOCOL IV ; Start 12/28/18 at 22:30 Ondansetron HCl (Zofran Inj) 4 mg Q6H PRN IV NAUSEA/VOMITING; Start 12/28/18 at 22:30 Aspirin (Aspirin) 81 mg DAILY PO Last administered on 12/30/18at 08:51; Admin Dose 81 MG; Start 12/29/18 at 09:00 Nitroglycerin (Nitroglycerin (Sl Tab) 0.4 Mg) 1 tab Q5M PRN SL .CHEST PAIN; Start 12/28/18 at 22:30 Acetaminophen (Tylenol Tab) 650 mg Q6H PRN PO .PAIN 1-3 OR TEMP; Start 12/28/18 at 22:30 Morphine Sulfate (morphine) 2 mg Q4H PRN IV .PAIN 7-10; Start 12/28/18 at 22:30 Docusate Sodium (Colace) 100 mg Q12H PRN PO .CONSTIPATION; Start 12/28/18 at 22:30 Bisacodyl (Dulcolax) 5 mg DAILY PRN PO .CONSTIPATION; Start 12/28/18 at 22:30 Hydralazine HCl (Apresoline) 10 mg Q4H PRN IV ELEVATED BLOOD PRESSURE; Start 12/29/18 at 01:00 Lisinopril (Zestril) 10 mg DAILY PO Last administered on 12/30/18at 08:51; Admin Dose 10 MG; Start 12/29/18 at 09:00 BONNIE FLYNN December 30, 2018 13:12
[2018-12-30] MEDS ORDERED: LIDOCAINE 1% (MDV) 20 ML INJ ONE (15:07)
[2018-12-30] MEDS ORDERED: FENTAnyl 50 MCG/ML VIAL ONE (15:23)
[2018-12-31 02:00] VITALS: BP 116/71; PULSE 87; RESP 18
[2018-12-31 08:00] VITALS: BP 151/62; PULSE 108; RESP 20
[2018-12-31] MEDS: ASPIRIN 81 MG TAB PO SCH (09:14)
[2018-12-31] MEDS: LISINOPRIL 10 MG TAB PO SCH (09:15)
--- NOTE | 2018-12-31 09:52 | CONS ---
Assessment/Plan Assessment/Plan Assessment/Plan (Daily) Assessment and recommendations; 1. Patient admitted for right sided chest pain with discovery of lung mass on CT imaging of the chest involving right upper lobe. Consider discharge. Outpatient follow-up with biopsy results. Consider PET scan as well. The findings are nondiagnostic patient would benefit from bronchoscopy. Consultation Date/Type/Reason Admit Date/Time December 30, 2018 at 09:20 Initial Consult Date 12/30/18 Type of Consult Pulmonary Pulmonary consult requested for evaluation of lung mass. Patient is a pleasant 58-year-old male who came into the hospital with a few days history of right-sided chest pain with coughing. Patient denies any shortness of breath, hemoptysis, complains of scant sputum production. Denies any wheezing. Past medical history; 1. History of hypertension. medications; reviewed. Allergies; none. Social history; scant history of smoking 30 years ago. Family history; noncontributory. Occupational history; patient has miscellaneous occupations. Review of systems; denies any headache, seizures, sore throat, wheezing, complains of cough with production of scant yellow to beige-colored sputum. Denies any hemoptysis. Denies any wheezing. Denies any abdominal pain, nausea vomiting. Any melena or hematochezia. Any edema. Any skin changes or any arthritis symptoms. Denies any urinary symptoms. General exam; middle-aged male, awake alert, currently in no distress. Date/Time of Note DATE: 12/31/18 TIME: 09:51 24 HR Interval Summary Free Text/Dictation Patien'st condition is a stable. Denies any chest pain, shortness of breath, coughing or wheezing. General exam; middle-aged male, awake alert, currently no distress. Exam/Review of Systems Exam Vitals Vital Signs Date Temp Pulse Resp B/P (MAP) Pulse Ox O2 O2 Flow FiO2 Time Delivery Rate 12/31/18 98.6 108 20 151/62 96 08:00 (91) 12/31/18 2.0 01:09 12/30/18 Room Air 07:52 Intake and Output 12/30/18 12/30/18 12/31/18 1515:00 23:00 07:00 IntakeIntake Total 550 ml 240 ml 200 ml BalanceBalance 550 ml 240 ml 200 ml Exam H EENT exam; supple neck, no JVD. No lymphadenopathy. Midline trachea. No thyromegaly. Patient has fair dentition. No neck masses. Chest exam; clear to auscultation. S1-S2 audible, no murmurs. Regular rhythm. Abdomen exam; soft, nontender. No organomegaly. Bowel sounds audible. Extremity exam; no peripheral edema clubbing. RECORD CUTTER exam; no focal deficit. Results Result Diagram: 12/31/18 0514 12/31/18 0514 Results 24hrs Laboratory Tests Test 12/30/18 10:21 12/30/18 14:11 12/31/18 05:14 Prothrombin Time 13.2 13.0 Prothrombin Time Ratio 1.0 1.0 INR International Normalized Ratio 0.99 0.97 Activated Partial Thromboplast Time 32.0 White Blood Count 12.4 H Red Blood Count 4.89 Hemoglobin 14.1 Hematocrit 42.9 Mean Corpuscular Volume 87.7 Mean Corpuscular Hemoglobin 28.8 L Mean Corpuscular Hemoglobin Concent 32.9 Red Cell Distribution Width 13.2 Platelet Count 277 Mean Platelet Volume 10.9 H Immature Granulocytes % 0.400 Neutrophils % 70.3 Lymphocytes % 17.0 Monocytes % 10.8 Eosinophils % 1.3 Basophils % 0.2 Nucleated Red Blood Cells % 0.0 Immature Granulocytes # 0.050 H Neutrophils # 8.7 H Lymphocytes # 2.1 Monocytes # 1.3 H Eosinophils # 0.2 Basophils # 0.0 Nucleated Red Blood Cells # 0.0 Sodium Level 142 Potassium Level 5.0 Chloride Level 105 Carbon Dioxide Level 30 Anion Gap 7 Blood Urea Nitrogen 22 H Creatinine 0.78 Est Glomerular Filtrat Rate mL/min > 60 Glucose Level 101 Calcium Level 9.7 Phosphorus Level 4.1 Magnesium Level 2.1 Medications Medication Current Medications Nitroglycerin (Nitroglycerin (Sl Tab) 0.4 Mg) 1 tab Q5M UP TO 3 DOSES PRN SL .CHEST PAIN; Start 12/28/18 at 21:00 IV Flush (NS 3 ml) 3 ml PER PROTOCOL IV ; Start 12/28/18 at 22:30 Ondansetron HCl (Zofran Inj) 4 mg Q6H PRN IV NAUSEA/VOMITING; Start 12/28/18 at 22:30 Aspirin (Aspirin) 81 mg DAILY PO Last administered on 12/31/18at 09:14; Admin D ose 81 MG; Start 12/29/18 at 09:00 Nitroglycerin (Nitroglycerin (Sl Tab) 0.4 Mg) 1 tab Q5M PRN SL .CHEST PAIN; Start 12/28/18 at 22:30 Acetaminophen (Tylenol Tab) 650 mg Q6H PRN PO .PAIN 1-3 OR TEMP; Start 12/28/18 at 22:30 Morphine Sulfate (morphine) 2 mg Q4H PRN IV .PAIN 7-10; Start 12/28/18 at 22:30 Docusate Sodium (Colace) 100 mg Q12H PRN PO .CONSTIPATION; Start 12/28/18 at 22:30 Bisacodyl (Dulcolax) 5 mg DAILY PRN PO .CONSTIPATION; Start 12/28/18 at 22:30 Hydralazine HCl (Apresoline) 10 mg Q4H PRN IV ELEVATED BLOOD PRESSURE; Start 12/29/18 at 01:00 Lisinopril (Zestril) 10 mg DAILY PO Last administered on 12/31/18at 09:15; Admin Dose 10 MG; Start 12/29/18 at 09:00 BONNIE FLYNN December 31, 2018 09:52
--- NOTE | 2018-12-31 12:41 | PN ---
Date/Time of Note Date/Time of Note DATE: 12/31/18 TIME: 12:41 Assessment/Plan VTE Prophylaxis Risk score (from Nsg)>0 risk: 3 SCD applied (from Nsg): Yes Pharmacological prophylaxis: LMWH Lines/Catheters IV Catheter Type (from Nrsg): Saline Lock Urinary Cath still in place: No Assessment/Plan Hospital Course SUBJECTIVE: Denies any chest pain or cough. OBJECTIVE: Physical Exam General: Adequately build 58 year-old male lying in bed in no apparent distress. HEENT: Normocephalic, atraumatic. Eyes: Anicteric sclerae, conjunctivae clear. ENT: Nasal septum midline, oral mucosa moist. Neck supple, no JVD noticed. Respiratory: Bilaterally diminished breath sounds. No use of accessory muscles of respiration. No adventitious breath sounds. Cardiovascular: S1, S2 heard. Regular rate and rhythm. Abdomen: Soft, nontender, and nondistended. Bowel sounds positive in all 4 quadrants. Genitourinary: Deferred. Extremities: No cyanosis, no clubbing, no edema. Peripheral pulses palpable. Neurologic: Cranial nerves II through XII grossly intact. The patient is awake, alert, and oriented. Skin: Normal skin turgor. No skin rashes. Labs & Vitals per chart ASSESSMENT & PLAN 58-year-old male with a past medical history of hypertension who came to the emergency room with multiple complaints including right-sided chest pain as well as cough with sputum production along with dyspnea that has been going on for the past few days. The patient's chest x-ray that was done in the emergency room showed right midlung airspace opacity representing atelectasis or pneumonia. The patient was admitted to inpatient setting for further treatment and evaluation. 1. Indeterminate irregular lobulated 3.2 cm pulmonary mass spanning the right upper and middle lobes -Status post CT-guided biopsy on 12/30/2018. -Pulmonology following. -Await pathology results. 2. Hypertension. -Continue antihypertensives. 3. Atypical chest pain. -Serial troponins negative. 4. Prediabetes. -Hemoglobin A1c of 5.9. -Monitor glycemic trends. 5. Fluids, electrolytes, and nutrition. -Low-cholesterol diet. 6. DVT prophylaxis. -Subcutaneous Lovenox. 7. Plan. -Patient awaiting biopsy results. The patient has very poor outpatient follow-up. Therefore, it is very difficult to ensure that the patient has appropriate follow-up as outpatient. In addition, if the biopsy results are negative, further evaluation of the lesion including a bronchoscopy may be necessary. Therefore, the patient will be kept in-house. The plan of care was explained to the patient and his family with the help of a cardiac rehabilitation program director. All questions answered. The patient was seen in collaboration with Dr. Duncan. Result Diagram: 12/31/1814 12/31/1814 Results 24hrs Laboratory Tests Test 12/30/18 14:11 12/31/18 05:14 Prothrombin Time 13.0 Prothrombin Time Ratio 1.0 INR International Normalized Ratio 0.97 Activated Partial Thromboplast Time 32.0 White Blood Count 12.4 H Red Blood Count 4.89 Hemoglobin 14.1 Hematocrit 42.9 Mean Corpuscular Volume 87.7 Mean Corpuscular Hemoglobin 28.8 L Mean Corpuscular Hemoglobin Concent 32.9 Red Cell Distribution Width 13.2 Platelet Count 277 Mean Platelet Volume 10.9 H Immature Granulocytes % 0.400 Neutrophils % 70.3 Lymphocytes % 17.0 Monocytes % 10.8 Eosinophils % 1.3 Basophils % 0.2 Nucleated Red Blood Cells % 0.0 Immature Granulocytes # 0.050 H Neutrophils # 8.7 H Lymphocytes # 2.1 Monocytes # 1.3 H Eosinophils # 0.2 Basophils # 0.0 Nucleated Red Blood Cells # 0.0 Sodium Level 142 Potassium Level 5.0 Chloride Level 105 Carbon Dioxide Level 30 Anion Gap 7 Blood Urea Nitrogen 22 H Creatinine 0.78 Est Glomerular Filtrat Rate mL/min > 60 Glucose Level 101 Calcium Level 9.7 Phosphorus Level 4.1 Magnesium Level 2.1 Exam/Review of Systems Exam Vitals Vital Signs Date Temp Pulse Resp B/P (MAP) Pulse Ox O2 O2 Flow FiO2 Time Delivery Rate 12/31/18 98.6 108 20 151/62 96 08:00 (91) 12/31/18 2.0 01:09 12/30/18 Room Air 07:52 Intake and Output 12/30/18 12/30/18 12/31/18 1515:00 23:00 07:00 IntakeIntake Total 550 ml 240 ml 200 ml BalanceBalance 550 ml 240 ml 200 ml Results Results 24hrs Laboratory Tests Test 12/30/18 14:11 12/31/18 05:14 Prothrombin Time 13.0 Prothrombin Time Ratio 1.0 INR International Normalized Ratio 0.97 Activated Partial Thromboplast Time 32.0 White Blood Count 12.4 H Red Blood Count 4.89 Hemoglobin 14.1 Hematocrit 42.9 Mean Corpuscular Volume 87.7 Mean Corpuscular Hemoglobin 28.8 L Mean Corpuscular Hemoglobin Concent 32.9 Red Cell Distribution Width 13.2 Platelet Count 277 Mean Platelet Volume 10.9 H Immature Granulocytes % 0.400 Neutrophils % 70.3 Lymphocytes % 17.0 Monocytes % 10.8 Eosinophils % 1.3 Basophils % 0.2 Nucleated Red Blood Cells % 0.0 Immature Granulocytes # 0.050 H Neutrophils # 8.7 H Lymphocytes # 2.1 Monocytes # 1.3 H Eosinophils # 0.2 Basophils # 0.0 Nucleated Red Blood Cells # 0.0 Sodium Level 142 Potassium Level 5.0 Chloride Level 105 Carbon Dioxide Level 30 Anion Gap 7 Blood Urea Nitrogen 22 H Creatinine 0.78 Est Glomerular Filtrat Rate mL/min > 60 Glucose Level 101 Calcium Level 9.7 Phosphorus Level 4.1 Magnesium Level 2.1 Medications Medication Current Medications Nitroglycerin (Nitroglycerin (Sl Tab) 0.4 Mg) 1 tab Q5M UP TO 3 DOSES PRN SL .CHEST PAIN; Start 12/28/18 at 21:00 IV Flush (NS 3 ml) 3 ml PER PROTOCOL IV ; Start 12/28/18 at 22:30 Ondansetron HCl (Zofran Inj) 4 mg Q6H PRN IV NAUSEA/VOMITING; Start 12/28/18 at 22:30 Aspirin (Aspirin) 81 mg DAILY PO Last administered on 12/31/18at 09:14; Admin Dose 81 MG; Start 12/29/18 at 09:00 Nitroglycerin (Nitroglycerin (Sl Tab) 0.4 Mg) 1 tab Q5M PRN SL .CHEST PAIN; Start 12/28/18 at 22:30 Acetaminophen (Tylenol Tab) 650 mg Q6H PRN PO .PAIN 1-3 OR TEMP; Start 12/28/18 at 22:30 Morphine Sulfate (morphine) 2 mg Q4H PRN IV .PAIN 7-10; Start 12/28/18 at 22:30 Docusate Sodium (Colace) 100 mg Q12H PRN PO .CONSTIPATION; Start 12/28/18 at 22:30 Bisacodyl (Dulcolax) 5 mg DAILY PRN PO .CONSTIPATION; Start 12/28/18 at 22:30 Hydralazine HCl (Apresoline) 10 mg Q4H PRN IV ELEVATED BLOOD PRESSURE; Start 12/29/18 at 01:00 Lisinopril (Zestril) 10 mg DAILY PO Last administered on 12/31/18at 09:15; Admin Dose 10 MG; Start 12/29/18 at 09:00 TATIANA HENDRICKSON NP December 31, 2018 12:41
[2018-12-31 14:00] VITALS: BP 134/20; PULSE 88; RESP 20
[2018-12-31 20:00] VITALS: BP 138/75; PULSE 89; RESP 19
[2019-01-01 02:00] VITALS: BP 130/64; PULSE 83; RESP 18
[2019-01-01 08:00] VITALS: BP 131/84; PULSE 65; RESP 18
[2019-01-01] MEDS: LISINOPRIL 10 MG TAB PO SCH (08:50)
--- NOTE | 2019-01-01 11:04 | PN ---
Date/Time of Note Date/Time of Note DATE: 01/01/19 TIME: 11:04 Objective Vitals Vital Signs Date Temp Pulse Resp B/P (MAP) Pulse Ox O2 O2 Flow FiO2 Time Delivery Rate 01/01/19 98.6 65 18 131/84 96 08:00 (100) 12/31/18 2.0 18:34 12/30/18 Room Air 07:52 Intake and Output 12/31/18 12/31/18 01/01/19 1515:00 23:00 07:00 IntakeIntake Total 590 ml 450 ml BalanceBalance 590 ml 450 ml Results Result Diagram: 12/31/18 0514 12/31/18 0514 Medications Medications Current Medications Nitroglycerin (Nitroglycerin (Sl Tab) 0.4 Mg) 1 tab Q5M UP TO 3 DOSES PRN SL .CHEST PAIN; Start 12/28/18 at 21:00 IV Flush (NS 3 ml) 3 ml PER PROTOCOL IV ; Start 12/28/18 at 22:30 Ondansetron HCl (Zofran Inj) 4 mg Q6H PRN IV NAUSEA/VOMITING; Start 12/28/18 at 22:30 Nitroglycerin (Nitroglycerin (Sl Tab) 0.4 Mg) 1 tab Q5M PRN SL .CHEST PAIN; Start 12/28/18 at 22:30 Acetaminophen (Tylenol Tab) 650 mg Q6H PRN PO .PAIN 1-3 OR TEMP Last administered on 12/31/18at 21:11; Admin Dose 650 MG; Start 12/28/18 at 22:30 Morphine Sulfate (morphine) 2 mg Q4H PRN IV .PAIN 7-10; Start 12/28/18 at 22:30 Docusate Sodium (Colace) 100 mg Q12H PRN PO .CONSTIPATION; Start 12/28/18 at 22:30 Bisacodyl (Dulcolax) 5 mg DAILY PRN PO .CONSTIPATION; Start 12/28/18 at 22:30 Hydralazine HCl (Apresoline) 10 mg Q4H PRN IV ELEVATED BLOOD PRESSURE; Start 12/29/18 at 01:00 Lisinopril (Zestril) 10 mg DAILY PO Last administered on 01/01/19at 08:50; Admin Dose 10 MG; Start 12/29/18 at 09:00 Promethazine HCl (Phenergan) 25 mg Q6H PRN PO nasal congestion; Start 01/01/19 at 10:30 VTE Prophylaxis Risk score (from Nsg)>0 risk: 2 SCD applied (from Nsg): Yes Lines/Catheters IV Catheter Type: Sheffield in Place: No Assessment/Plan Hospital Course Subjective Patient has no acute complaints except for some upper respiratory congestion to the nose Objective Physical exam General: Patient is laying in bed and answers questions appropriately Mentation: Patient is alert and oriented 4, Head: Normocephalic atraumatic Eyes: EOMI, pupils reactive to light Neck: Supple, nontender, midline Respiratory: coarse to auscultation bilaterally Cardiovascular: regular rate, no obvious murmurs Gastrointestinal: non-tender to palpation, bowel sounds heard. Neurological: Moves all extremities spontaneously Skin: No new skin lesions ASSESSMENT & PLAN 58-year-old male with a past medical history of hypertension [facility] multiple complaints including right-sided chest pain as well as cough with sputum production along with dyspnea that has been going on for the past few days. The patient's chest x-ray that was done in the emergency room showed right midlung airspace opacity representing atelectasis or pneumonia. The patient was admitted to inpatient setting for further treatment and evaluation. 1. Indeterminate irregular lobulated 3.2 cm pulmonary mass spanning the right upper and middle lobes -Status post CT-guided biopsy on 12/30/2018. -Pulmonology following. -Pathology does not show malignancy 2. Hypertension. -Continue antihypertensives. 3. Atypical chest pain. -Serial troponins negative. 4. Prediabetes. -Hemoglobin A1c of 5.9. -Monitor glycemic trends. 5. Fluids, electrolytes, and nutrition. -Low-cholesterol diet. 6. DVT prophylaxis. -Subcutaneous Lovenox. 7. Plan. The patient has very poor outpatient follow-up. Therefore, it is very difficult to ensure that the patient has appropriate follow-up as outpatient. Another biopsies do not show a clear metastases, will need to speak with pulmonology regarding possible bronc CONRADO KEVIN January 01, 2019 11:04
[2019-01-01] MEDS: PROMETHAZINE 25 MG TAB PO PRN (11:17)
[2019-01-01 15:00] VITALS: BP 131/84; PULSE 65; RESP 18
--- NOTE | 2019-01-01 18:04 | CONS ---
Consult Date/Type/Reason Admit Date/Time December 30, 2018 at 09:20 Initial Consult Date 12/30/18 Type of Consultation: Pulm Date/Time of Note DATE: 01/01/19 TIME: 18:[address] reviewed. Bx results reviewed. Objective Vitals Vital Signs Date Temp Pulse Resp B/P (MAP) Pulse Ox O2 O2 Flow FiO2 Time Delivery Rate 01/01/19 98.6 65 18 131/84 96 Room Air 15:00 (100) 12/31/18 2.0 18:34 Intake and Output 12/31/18 12/31/18 01/01/19 1515:00 23:00 07:00 IntakeIntake Total 590 ml 450 ml BalanceBalance 590 ml 450 ml Exam HEENT: Neck supple; no JVD; no LAD CVS: RRR, S1 and S2 CHEST: Clear ABD: Soft, NT, + BS EXT: No c/c/e Results/Medications Result Diagram: 12/31/18 0514 12/31/18513 Home Meds Reported Medications Hydrochlorothiazide (Hydrochlorothiazide) 12.5 Mg Capsule, 12.5 MG PO DAILY for 60 Days, #60 take 1 tablet by mouth once daily 12/28/18 Cetirizine Hcl (Allergy Relief) 10 Mg Tablet, 10 MG PO DAILY for 30 Days, #30 take 1 TABLET by mouth once daily 12/28/18 Medications Current Medications Nitroglycerin (Nitroglycerin (Sl Tab) 0.4 Mg) 1 tab Q5M UP TO 3 DOSES PRN SL .CHEST PAIN; Start 12/28/18 at 21:00 IV Flush (NS 3 ml) 3 ml PER PROTOCOL IV ; Start 12/28/18 at 22:30 Ondansetron HCl (Zofran Inj) 4 mg Q6H PRN IV NAUSEA/VOMITING; Start 12/28/18 at 22:30 Nitroglycerin (Nitroglycerin (Sl Tab) 0.4 Mg) 1 tab Q5M PRN SL .CHEST PAIN; Start 12/28/18 at 22:30 Acetaminophen (Tylenol Tab) 650 mg Q6H PRN PO .PAIN 1-3 OR TEMP Last administered on 12/31/18at 21:11; Admin Dose 650 MG; Start 12/28/18 at 22:30 Morphine Sulfate (morphine) 2 mg Q4H PRN IV .PAIN 7-10; Start 12/28/18 at 22:30 Docusate Sodium (Colace) 100 mg Q12H PRN PO .CONSTIPATION; Start 12/28/18 at 22:30 Bisacodyl (Dulcolax) 5 mg DAILY PRN PO .CONSTIPATION; Start 12/28/18 at 22:30 Hydralazine HCl (Apresoline) 10 mg Q4H PRN IV ELEVATED BLOOD PRESSURE; Start 12/29/18 at 01:00 Lisinopril (Zestril) 10 mg DAILY PO Last administered on 01/01/19at 08:50; Admin Dose 10 MG; Start 12/29/18 at 09:00 Promethazine HCl (Phenergan) 25 mg Q6H PRN PO nasal congestion Last administered on 01/01/19at 11:17; Admin Dose 25 MG; Start 01/01/19 at 10:30 Assessment/Plan Assessment/Plan (Daily) IMP: 1. Spiculated RUL/RML lung mass--findings concerning for NSCLC. Biopsy non-diag nostic RECS: 1. Would pursue PET/CT 2. Based on findings would likely consider re-CT guided lung biopsy vs. VATS wedge. LAURA ARIZMENDI MD January 01, 2019 18:04
[2019-01-01 20:00] VITALS: BP 117/67; PULSE 76; RESP 18
[2019-01-02 02:00] VITALS: BP 128/73; PULSE 72; RESP 18
[2019-01-02] MEDS: LISINOPRIL 10 MG TAB PO SCH (08:26)
[2019-01-02 08:29] VITALS: BP 134/87; PULSE 75; RESP 18
--- NOTE | 2019-01-02 09:42 | PN ---
Date/Time of Note Date/Time of Note DATE: 01/02/19 TIME: 09:41 Objective Vitals Vital Signs Date Temp Pulse Resp B/P (MAP) Pulse Ox O2 O2 Flow FiO2 Time Delivery Rate 01/02/19 98.8 75 18 134/87 97 08:29 (103) 01/01/19 Room Air 15:00 12/31/18 2.0 18:34 Intake and Output 01/01/19 01/01/19 01/02/19 1515:00 23:00 07:00 IntakeIntake Total 350 ml 350 ml 500 ml BalanceBalance 350 ml 350 ml 500 ml Results Result Diagram: 01/02/19 0555 01/02/19 0555 Medications Medications Current Medications Nitroglycerin (Nitroglycerin (Sl Tab) 0.4 Mg) 1 tab Q5M UP TO 3 DOSES PRN SL .CHEST PAIN; Start 12/28/18 at 21:00 IV Flush (NS 3 ml) 3 ml PER PROTOCOL IV ; Start 12/28/18 at 22:30 Ondansetron HCl (Zofran Inj) 4 mg Q6H PRN IV NAUSEA/VOMITING; Start 12/28/18 at 22:30 Nitroglycerin (Nitroglycerin (Sl Tab) 0.4 Mg) 1 tab Q5M PRN SL .CHEST PAIN; Start 12/28/18 at 22:30 Acetaminophen (Tylenol Tab) 650 mg Q6H PRN PO .PAIN 1-3 OR TEMP Last administered on 12/31/18at 21:11; Admin Dose 650 MG; Start 12/28/18 at 22:30 Morphine Sulfate (morphine) 2 mg Q4H PRN IV .PAIN 7-10; Start 12/28/18 at 22:30 Docusate Sodium (Colace) 100 mg Q12H PRN PO .CONSTIPATION; Start 12/28/18 at 22:30 Bisacodyl (Dulcolax) 5 mg DAILY PRN PO .CONSTIPATION; Start 12/28/18 at 22:30 Hydralazine HCl (Apresoline) 10 mg Q4H PRN IV ELEVATED BLOOD PRESSURE; Start 12/29/18 at 01:00 Lisinopril (Zestril) 10 mg DAILY PO Last administered on 01/02/19at 08:26; Admin Dose 10 MG; Start 5/1/19 at 09:00 Promethazine HCl (Phenergan) 25 mg Q6H PRN PO nasal congestion Last administered on 01/01/19at 11:17; Admin Dose 25 MG; Start 01/01/19 at 10:30 VTE Prophylaxis Risk score (from Ns)>0 risk: 2 SCD applied (from Ns): Yes Lines/Catheters IV Catheter Type: [place] in Place: No Assessment/Plan Hospital Course Subjective Patient has no acute complaints, upper resp nasal congestion has improved Objective Physical exam General: Patient is laying in bed and answers questions appropriately Mentation: Patient is alert and oriented 4, Head: Normocephalic atraumatic Eyes: EOMI, pupils reactive to light Neck: Supple, nontender, midline Respiratory: coarse to auscultation bilaterally Cardiovascular: regular rate, no obvious murmurs Gastrointestinal: non-tender to palpation, bowel sounds heard. Neurological: Moves all extremities spontaneously Skin: No new skin lesions ASSESSMENT & PLAN 58-year-old male with a past medical history of hypertension who came to the emergency room with multiple complaints including right-sided chest pain as well as cough with sputum production along with dyspnea that has been going on for the past few days. The patient's chest x-ray that was done in the emergency room showed right midlung airspace opacity representing atelectasis or pneumonia. The patient was admitted to inpatient setting for further treatment and evaluation. 1. Indeterminate irregular lobulated 3.2 cm pulmonary mass spanning the right upper and middle lobes -Status post CT-guided biopsy on 12/30/2018. -Pulmonology following. -Pathology does not show malignancy 2. Hypertension. -Continue antihypertensives. 3. Atypical chest pain. -Serial troponins negative. 4. Prediabetes. -Hemoglobin A1c of 5.9. -Monitor glycemic trends. 5. Fluids, electrolytes, and nutrition. -Low-cholesterol diet. 6. DVT prophylaxis. -Subcutaneous Lovenox. 7. Plan. The patient has very poor outpatient follow-up. Therefore, it is very difficult to ensure that the patient has appropriate follow-up as outpatient. Another biopsies do not show a clear metastases, will need to speak with pulmonology regarding possible bronch, will need to formulate a plan of VATS versus other etiology to get biopsy sample. CONRADO KEVIN January 02, 2019 09:42
--- NOTE | 2019-01-02 13:25 | CONS ---
Consult Date/Type/Reason Admit Date/Time December 30, 2018 at 09:20 Initial Consult Date 12/30/18 Type of Consultation: Pulm Date/Time of Note DATE: 01/02/19 TIME: 13:22 Subjective No events overnight. Objective Vitals Vital Signs Date Temp Pulse Resp B/P (MAP) Pulse Ox O2 O2 Flow FiO2 Time Delivery Rate 01/02/19 98.8 75 18 134/87 97 08:29 (103) 01/01/19 Room Air 15:00 12/31/18 2.0 18:34 Intake and Output 01/01/19 01/01/19 01/02/19 1515:00 23:00 07:00 IntakeIntake Total 350 ml 350 ml 500 ml BalanceBalance 350 ml 350 ml 500 ml Exam HEENT: Neck supple; no JVD; no LAD CVS: RRR, S1 and S2 CHEST: Clear ABD: Soft, NT, + BS EXT: No c/c/e Results/Medications Result Diagram: 01/02/19 0555 01/02/19 0555 Results 24 hrs Laboratory Tests Test 01/02/19 05:55 White Blood Count 9.3 # Red Blood Count 4.69 L Hemoglobin 13.5 L Hematocrit 40.8 L Mean Corpuscular Volume 87.0 Mean Corpuscular Hemoglobin 28.8 L Mean Corpuscular Hemoglobin Concent 33.1 Red Cell Distribution Width 12.9 Platelet Count 270 Mean Platelet Volume 10.8 H Immature Granulocytes % 0.300 Neutrophils % 62.8 Lymphocytes % 23.4 Monocytes % 10.0 Eosinophils % 3.0 Basophils % 0.5 Nucleated Red Blood Cells % 0.0 Immature Granulocytes # 0.030 Neutrophils # 5.8 Lymphocytes # 2.2 Monocytes # 0.9 Eosinophils # 0.3 Basophils # 0.1 Nucleated Red Blood Cells # 0.0 Sodium Level 142 Potassium Level 4.3 Chloride Level 104 Carbon Dioxide Level 30 Anion Gap 8 Blood Urea Nitrogen 19 Creatinine 0.82 Est Glomerular Filtrat Rate mL/min > 60 Glucose Level 103 Calcium Level 9.1 Phosphorus Level 3.8 Magnesium Level 2.2 Home Meds Reported Medications Hydrochlorothiazide (Hydrochlorothiazide) 12.5 Mg Capsule, 12.5 MG PO DAILY for 60 Days, #60 take 1 tablet by mouth once daily 12/28/18 Cetirizine Hcl (Allergy Relief) 10 Mg Tablet, 10 MG PO DAILY for 30 Days, #30 take 1 TABLET by mouth once daily 12/28/18 Medications Current Medications Nitroglycerin (Nitroglycerin (Sl Tab) 0.4 Mg) 1 tab Q5M UP TO 3 DOSES PRN SL .CHEST PAIN; Start 12/28/18 at 21:00 IV Flush (NS 3 ml) 3 ml PER PROTOCOL IV ; Start 12/28/18 at 22:30 Ondansetron HCl (Zofran Inj) 4 mg Q6H PRN IV NAUSEA/VOMITING; Start 12/28/18 at 22:30 Nitroglycerin (Nitroglycerin (Sl Tab) 0.4 Mg) 1 tab Q5M PRN SL .CHEST PAIN; Start 12/28/18 at 22:30 Acetaminophen (Tylenol Tab) 650 mg Q6H PRN PO .PAIN 1-3 OR TEMP Last administered on 12/31/18at 21:11; Admin Dose 650 MG; Start 12/28/18 at 22:30 Morphine Sulfate (morphine) 2 mg Q4H PRN IV .PAIN 7-10; Start 12/28/18 at 22:30 Docusate Sodium (Colace) 100 mg Q12H PRN PO .CONSTIPATION; Start 12/28/18 at 22:30 Bisacodyl (Dulcolax) 5 mg DAILY PRN PO .CONSTIPATION; Start 12/28/18 at 22:30 Hydralazine HCl (Apresoline) 10 mg Q4H PRN IV ELEVATED BLOOD PRESSURE; Start 12/29/18 at 01:00 Lisinopril (Zestril) 10 mg DAILY PO Last administered on 01/02/19at 08:26; Admin Dose 10 MG; Start 12/29/18 at 09:00 Promethazine HCl (Phenergan) 25 mg Q6H PRN PO nasal congestion Last administered on 01/01/19at 11:17; Admin Dose 25 MG; Start 01/01/19 at 10:30 Assessment/Plan Assessment/Plan (Daily) IMP: 1. Spiculated RUL/RML lung mass--findings concerning for NSCLC. Biopsy non- diagnostic. Given the location of the lesion, bronchoscopy will be low yield. RECS: 1. Would pursue PET/CT. PET scanning would also be helpful if repeat CT-guided bx is considered as it will help guide us to the more metabolically active (less necrotic) part of the lesion. 2. Will discuss alternatives with Dr. Fulton and CTS. LAURA ARIZMENDI MD January 02, 2019 13:25
[2019-01-02 14:21] VITALS: BP 122/59
[2019-01-02 20:00] VITALS: BP 132/69; PULSE 70; RESP 16
[2019-01-03 02:00] VITALS: BP 123/64; RESP 18
[2019-01-03 08:07] VITALS: BP 143/77; PULSE 65; RESP 18
[2019-01-03] MEDS: LISINOPRIL 10 MG TAB PO SCH (08:33)
--- NOTE | 2019-01-03 13:59 | PN ---
Date/Time of Note Date/Time of Note DATE: 01/03/19 TIME: 13:58 Objective Vitals Vital Signs Date Temp Pulse Resp B/P (MAP) Pulse Ox O2 O2 Flow FiO2 Time Delivery Rate 01/03/19 98.0 65 18 143/77 96 Room Air 08:07 (99) 12/31/18 2.0 18:34 Intake and Output 01/02/19 01/02/19 01/03/19 1515:00 23:00 07:00 IntakeIntake Total 480 ml 400 ml BalanceBalance 480 ml 400 ml Results Result Diagram: 01/03/19 0514 01/03/19 0514 Medications Medications Current Medications IV Flush (NS 3 ml) 3 ml PER PROTOCOL IV ; Start 12/28/18 at 22:30 Ondansetron HCl (Zofran Inj) 4 mg Q6H PRN IV NAUSEA/VOMITING; Start 12/28/18 at 22:30 Nitroglycerin (Nitroglycerin (Sl Tab) 0.4 Mg) 1 tab Q5M PRN SL .CHEST PAIN; Start 12/28/18 at 22:30 Acetaminophen (Tylenol Tab) 650 mg Q6H PRN PO .PAIN 1-3 OR TEMP Last administered on 12/31/18at 21:11; Admin Dose 650 MG; Start 12/28/18 at 22:30 Morphine Sulfate (morphine) 2 mg Q4H PRN IV .PAIN 7-10; Start 12/28/18 at 22:30 Docusate Sodium (Colace) 100 mg Q12H PRN PO .CONSTIPATION; Start 12/28/18 at 22:30 Bisacodyl (Dulcolax) 5 mg DAILY PRN PO .CONSTIPATION; Start 12/28/18 at 22:30 Hydralazine HCl (Apresoline) 10 mg Q4H PRN IV ELEVATED BLOOD PRESSURE; Start 12/29/18 at 01:00 Lisinopril (Zestril) 10 mg DAILY PO Last administered on 01/03/19at 08:33; Admin Dose 10 MG; Start 12/29/18 at 09:00 Promethazine HCl (Phenergan) 25 mg Q6H PRN PO nasal congestion Last administered on 01/01/19at 11:17; Admin Dose 25 MG; Start 01/01/19 at 10:30 VTE Prophylaxis Risk score (from Nsg)>0 risk: 2 SCD applied (from Nsg): Yes Lines/Catheters IV Catheter Type: [place] in Place: No Assessment/Plan Hospital Course Subjective Patient has no acute complaints, upper resp nasal congestion has improved, but still bothering him Objective Physical exam General: Patient is laying in bed and answers questions appropriately Mentation: Patient is alert and oriented 4, Head: Normocephalic atraumatic Eyes: EOMI, pupils reactive to light Neck: Supple, nontender, midline Respiratory: coarse to auscultation bilaterally Cardiovascular: regular rate, no obvious murmurs Gastrointestinal: non-tender to palpation, bowel sounds heard. Neurological: Moves all extremities spontaneously Skin: No new skin lesions ASSESSMENT & PLAN 58-year-old male with a past medical history of hypertension who came to the emergency room with multiple complaints including right-sided chest pain as well as cough with sputum production along with dyspnea that has been going on for the past few days. The patient's chest x-ray that was done in the emergency room showed right midlung airspace opacity representing atelectasis or pneumonia. The patient was admitted to inpatient setting for further treatment and evaluation. 1. Indeterminate irregular lobulated 3.2 cm pulmonary mass spanning the right upper and middle lobes -Status post CT-guided biopsy on 12/30/2018. -Pulmonology following. -Pathology does not show malignancy URI -?sinusitis -xray face ordered 2. Hypertension. -Continue antihypertensives. 3. Atypical chest pain. -Serial troponins negative. 4. Prediabetes. -Hemoglobin A1c of 5.9. -Monitor glycemic trends. 5. Fluids, electrolytes, and nutrition. -Low-cholesterol diet. 6. DVT prophylaxis. -Subcutaneous Lovenox. 7. Plan. The patient has very poor outpatient follow-up. Therefore, it is very difficult to ensure that the patient has appropriate follow-up as outpatient. Another biopsies do not show a clear metastases, will need to speak with pulmonology regarding possible bronch, will need to formulate a plan of VATS versus other etiology to get biopsy sample. CONRADO KEVIN January 03, 2019 13:59
[2019-01-03 14:00] VITALS: BP 118/75; PULSE 78; RESP 18
[2019-01-03] MEDS: PROMETHAZINE 25 MG TAB PO PRN (15:44)
--- NOTE | 2019-01-03 15:52 | CONS ---
Consult Date/Type/Reason Admit Date/Time December 30, 2018 at 09:20 Initial Consult Date 12/30/18 Type of Consult Pulmonary Date/Time of Note DATE: 01/03/19 TIME: 15:50 Subjective Patient comfortable this morning no respiratory distress. CT guided biopsy negative for malignancy. Objective Vital Signs Date Temp Pulse Resp B/P (MAP) Pulse Ox O2 O2 Flow FiO2 Time Delivery Rate 01/03/19 98.2 78 18 118/75 96 Room Air 14:00 (89) 12/31/18 2.0 18:34 Intake and Output 01/02/19 01/02/19 01/03/19 1515:00 23:00 07:00 IntakeIntake Total 480 ml 400 ml BalanceBalance 480 ml 400 ml Exam GENERAL: VITAL SIGNS: per chart NECK: Supple. No JVD or lymphadenopathy. CARDIAC EXAM: S1, S2. No added sounds or murmurs. CHEST: clear bilaterally, No added sounds, rales or wheezes ABDOMEN: Soft, nontender. No guarding or rebound. EXTREMITIES: No cyanosis, clubbing or edema. NEUROLOGIC: Generalized weakness. No focal deficits. Results/Medications Result Diagram: 01/03/19 0514 01/03/19 0514 Results 24 hrs Laboratory Tests Test 01/03/19 05:14 White Blood Count 8.6 Red Blood Count 5.05 Hemoglobin 14.5 Hematocrit 43.0 Mean Corpuscular Volume 85.1 Mean Corpuscular Hemoglobin 28.7 L Mean Corpuscular Hemoglobin Concent 33.7 Red Cell Distribution Width 13.0 Platelet Count 276 Mean Platelet Volume 11.4 H Immature Granulocytes % 0.300 Neutrophils % 59.4 Lymphocytes % 27.3 Monocytes % 10.2 Eosinophils % 2.5 Basophils % 0.3 Nucleated Red Blood Cells % 0.0 Immature Granulocytes # 0.030 Neutrophils # 5.1 Lymphocytes # 2.4 Monocytes # 0.9 Eosinophils # 0.2 Basophils # 0.0 Nucleated Red Blood Cells # 0.0 Sodium Level 141 Potassium Level 4.0 Chloride Level 106 Carbon Dioxide Level 26 Anion Gap 9 Blood Urea Nitrogen 17 Creatinine 0.66 Est Glomerular Filtrat Rate mL/min > 60 Glucose Level 99 Calcium Level 9.3 Phosphorus Level 3.9 Magnesium Level 2.2 Medications Current Medications IV Flush (NS 3 ml) 3 ml PER PROTOCOL IV ; Start 12/28/18 at 22:30 Ondansetron HCl (Zofran Inj) 4 mg Q6H PRN IV NAUSEA/VOMITING; Start 12/28/18 at 22:30 Nitroglycerin (Nitroglycerin (Sl Tab) 0.4 Mg) 1 tab Q5M PRN SL .CHEST PAIN; Start 12/28/18 at 22:30 Acetaminophen (Tylenol Tab) 650 mg Q6H PRN PO .PAIN 1-3 OR TEMP Last administered on 12/31/18at 21:11; Admin Dose 650 MG; Start 12/28/18 at 22:30 Morphine Sulfate (morphine) 2 mg Q4H PRN IV .PAIN 7-10; Start 12/28/18 at 22:30 Docusate Sodium (Colace) 100 mg Q12H PRN PO .CONSTIPATION; Start 12/28/18 at 22:30 Bisacodyl (Dulcolax) 5 mg DAILY PRN PO .CONSTIPATION; Start 12/28/18 at 22:30 Hydralazine HCl (Apresoline) 10 mg Q4H PRN IV ELEVATED BLOOD PRESSURE; Start 12/29/18 at 01:00 Lisinopril (Zestril) 10 mg DAILY PO Last administered on 01/03/19at 08:33; Admin Dose 10 MG; Start 12/29/18 at 09:00 Promethazine HCl (Phenergan) 25 mg Q6H PRN PO nasal congestion Last administered on 01/03/19at 15:44; Admin Dose 25 MG; Start 01/01/19 at 10:30 Assessment/Plan Hospital Course (Demo Recall) IMP: 1. Spiculated RUL/RML lung mass--findings concerning for NSCLC. Biopsy non-diagnostic. RECS: 1. Would pursue PET/CT. Outpatient PET/CT and follow-up with all of you pulmonary with results. Will likely need thoracic surgery for resection. LINK RANDLE [facility], [facility] January 03, 2019 15:52
[2019-01-03 20:00] VITALS: BP 124/68; PULSE 68; RESP 19
[2019-01-04 03:00] VITALS: BP 156/78; PULSE 58; RESP 18
[2019-01-04 08:00] VITALS: BP 117/66; PULSE 82; RESP 17
[2019-01-04] MEDS: LISINOPRIL 10 MG TAB PO SCH (09:47)
[2019-01-04] MEDS ORDERED: LISI10TA2 PO (12:52)
[2019-01-04] MEDS ORDERED: FLUT9.9S NASAL (12:52)
--- NOTE | 2019-01-04 12:57 | DS ---
Date/Time of Note Date/Time of Note DATE: 01/04/19 TIME: 12:57 Discharge Summary Admission/Discharge Info Admit Date/Time December 30, 2018 at 09:20 Discharge Date/Time Patient Condition: Stable Hospital Course Patient is a male with a past medical history significant for hypertension who originally came into the emergency room for chest pain. Patient had cough, sputum production, chest pain for a few days and incidentally on chest x-ray and subsequent CT a questionable mass was found. Patient underwent CT-guided biopsy and most of his symptoms had resolved at this time. Patient waited due to his insurance status for the results of the biopsy however the biopsy did not show malignancy as was suspected by pulmonology. Pulmonology was concerned that findings may be consistent with non-squamous cell lung carcinoma however since there was a negative CT biopsy and they determined that a bronchoscopy will not get a good sample either. It was determined by pulmonology that patient should follow-up with all of [facility] in order to receive PET scan and further care as patient does not have insurance at this time. Patient will also be given resources to follow-up with all of [facility] as well as directions in [place]. Patient will be given biopsy results and strict instructions on her follow-up for the lung mass. Patient given resources in order to obtain insurance as well. Discharge diagnosis Chest pain, resolved Lung mass, sterile questionable diagnosis Upper respiratory infection, resolving Questionable sinusitis Hypertension Prediabetes Home Meds Active Scripts Fluticasone Propionate (Flonase Allergy Relief) 9.9 Ml [place].susp, 1 SPRAY NASAL BID for 10 Days, #1 BOTTLE TO EACH NOSTRIL Prov:CONRADO KEVIN 01/04/19 Lisinopril* (Lisinopril*) 10 Mg Tablet, 10 MG PO DAILY for 30 Days, #30 TAB 1 Refill Prov:CONRADO KEVIN 01/04/19 Reported Medications Hydrochlorothiazide (Hydrochlorothiazide) 12.5 Mg Capsule, 12.5 MG PO DAILY for 60 Days, #60 take 1 tablet by mouth once daily 12/28/18 Cetirizine Hcl (Allergy Relief) 10 Mg Tablet, 10 MG PO DAILY for 30 Days, #30 take 1 TABLET by mouth once daily 12/28/18 Primary Care Provider Care Physician No Primary Time spent on discharge: > 30 minutes Pending Labs Laboratory Tests Test 01/04/19 08:33 White Blood Count 7.7 10^3/ul (4.8-10.8) Red Blood Count 4.97 10^6/ul (4.70-6.10) Hemoglobin 14.3 g/dl (14.0-18.0) Hematocrit 42.6 % (42.0-52.0) Mean Corpuscular Volume 85.7 fl (82.0-101.0) Mean Corpuscular Hemoglobin 28.8 pg (29.0-33.0) Mean Corpuscular Hemoglobin Concent 33.6 g/dl (32.0-37.0) Red Cell Distribution Width 12.8 % (11.5-14.5) Platelet Count 306 10^3/UL (140-415) Mean Platelet Volume 10.9 fl (7.4-10.4) Immature Granulocytes % 0.300 % (0.001-0.429) Neutrophils % 62.5 % (39.0-77.0) Lymphocytes % 25.6 % (15.0-51.0) Monocytes % 9.1 % (0.0-11.0) Eosinophils % 2.0 % (0.0-7.0) Basophils % 0.5 % (0.0-2.0) Nucleated Red Blood Cells % 0.0 /100WBC (0.0-0.0) Immature Granulocytes # 0.020 10^3/ul (0.0-0.031) Neutrophils # 4.8 10^3/ul (1.6-7.5) Lymphocytes # 2.0 10^3/ul (0.8-2.9) Monocytes # 0.7 10^3/ul (0.3-0.9) Eosinophils # 0.2 10^3/ul (0.0-0.5) Basophils # 0.0 10^3/ul (0.0-0.1) Nucleated Red Blood Cells # 0.0 10^3/ul (0.0-0.0) Sodium Level 140 mmol/L (135-144) Potassium Level 4.2 mmol/L (3.5-5.1) Chloride Level 105 mmol/L (97-110) Carbon Dioxide Level 27 mmol/L (21-31) Anion Gap 8 (5-13) Blood Urea Nitrogen 19 mg/dl (7-20) Creatinine 0.66 mg/dl (0.61-1.24) Est Glomerular Filtrat Rate mL/min > 60 mL/min (>60) Glucose Level 106 mg/dl (70-220) Calcium Level 9.3 mg/dl (8.4-10.2) Phosphorus Level 3.7 mg/dl (2.5-4.9) Magnesium Level 2.2 mg/dl (1.7-2.5) CONRADO KEVIN January 04, 2019 12:57
--- NOTE | 2019-01-04 13:03 | PDOCDIS ---
Discharge Instructions CONDITION [id number] Patient Condition: [id number] Stable FOLLOW UP/APPOINTMENTS Follow-up Plan 1. You need to immediately follow-up with [facility] with a primary care provider as well as a creative specialist for PET scan for possible carcinoma in your lung. A biopsy report will be given to you in order to take to the doctor. 2. 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 Bronchoscopy was deferred as given the location of the lesion, it would be low yield per pulmonology. Pulmonology recommends outpatient PET and CT with possible thoracic surgery for resection. 3. Please stop hydrochlorothiazide continue lisinopril for your blood pressure CONRADO KEVIN January 04, 2019 13:03
[2019-01-04 14:00] VITALS: BP 134/86; PULSE 69; RESP 18
== END 2019-01-04 16:00 | disposition home or self-care (01) | DRG 204 ==
LOC: E/R 18:22 → TEL 22:27 → OBSVTOIN 12-30 09:20 → PP2 12-30 10:37
PROVIDERS: ADMIT Family Medicine; ATTEND Internal Medicine
PROC: 0BBK3ZX Excision of Right Lung, Percutaneous Approach, Diagnostic (ICD-10-PCS; principal; 2018-12-30)
DX: R91.8 Other nonspecific abnormal finding of lung field (principal); R07.9 Chest pain, unspecified; J01.90 Acute sinusitis, unspecified; I16.0 Hypertensive urgency; I10 Essential (primary) hypertension; R73.03 Prediabetes
CPT/HCPCS: 36415; 70220; 71045; 71046; 71250; 77012; 80048; 80053; 80061; 82550; 82553; 83036; 83735; 84100; 84145; 84443; 84484; 85025; 85378; 85610; 85730; 86635; 86641; 86703; 87070; 87075; 87102; 87116; 88104; 88309; 88312; 93005; 93306; G0378; J0456; J0696; J3010